=== PATIENT | male | born 1985 | race Caucasian/White ===

== ENCOUNTER → 2017-08-10 | Emergency (ER) | payer OTHER ==
[~2017-08-10] VITALS: Ht 177.8 cm; Wt 81.6 kg
== END | disposition home or self-care (01) ==
LOC: ER 15:33
DX: G40.89 Other seizures (principal); K29.60 Other gastritis without bleeding

== ENCOUNTER 2019-05-21 03:33 | Emergency (ER) | payer OTHER ==
[~2019-05-21] VITALS: Ht 177.8 cm; Wt 86.2 kg
[2019-05-21] MEDS ORDERED: VIMPAT150 MG (03:55)
[2019-05-21] MEDS ORDERED: DEPAKOTE ER500 MG (03:55)
== END 2019-05-21 11:38 | disposition home or self-care (01) ==
LOC: ER 03:33
DX: M79.89 Other specified soft tissue disorders (principal)